=== PATIENT | female | born 1990 | race Caucasian/White ===

== ENCOUNTER → 2020-10-27 | Outpatient (CLI) | payer BC, OTHER ==
[~2020-10-27] MED LIST: BACLOFEN20 MG PO; HYDROCHLOROTHIA25 MG PO; PROZAC40 MG PO; TOPROL XL25 MG PO
== END ==
LOC: NM 09-19 09:00
DX: R10.10 Upper abdominal pain, unspecified (principal)
CPT/HCPCS: 78227; A9537; J2805

== ENCOUNTER → 2020-11-10 | Day surgery (SDC) | payer BC, OTHER | END | disposition home or self-care (01) | LOC: OR 07:10 | DX: K29.70 Gastritis, unspecified, without bleeding (principal); K31.89 Other diseases of stomach and duodenum; I50.9 Heart failure, unspecified; J45.909 Unspecified asthma, uncomplicated; F17.210 Nicotine dependence, cigarettes, uncomplicated; Z88.1 Allergy status to other antibiotic agents; Z82.49 Family history of ischemic heart disease and other diseases of the circulatory system; Z83.3 Family history of diabetes mellitus; Z79.899 Other long term (current) drug therapy | CPT/HCPCS: 84703; J2001; J2704; J7030 ==